=== PATIENT | female | born 1965 | race Caucasian/White ===

== ENCOUNTER 2020-09-21 12:19 | Inpatient (IN) ==
[2020-09-21] MEDS ORDERED: IOPAMIDOL 100 ML BOTTLE IV ONE (12:20)
[2020-09-21] MEDS ORDERED: 0.9 % SODIUM CHLORIDE 1,000 ML IV ONE ×2 (12:39→20:23)
[2020-09-21] MEDS ORDERED: ONDANSETRON 4 MG/2 ML VIAL IV ONE ×3 (12:39→18:02)
--- NOTE | 2020-09-21 12:43 | Emergency Department Note ---
Abdominal Pain HPI General Chief Complaint: Abdominal Pain Stated Complaint: abdominal pain Time Seen by Provider: 09/21/20 12:22 Source: patient Mode of arrival: ambulatory Limitations: no limitations History of Present Illness HPI Narrative: Narrative: 55-year-old female patient referred to the emergency department from the [facility] with chief complaint of worsening abdominal pain, nausea, and vomiting x3 days. Patient is known HIV positive and currently suffers from chronic pain as well. She is not been able to keep any of her medications down for the last 2 days. She contacted her primary care provider who then referred her to the [facility]. While at [facility] she had a urinalysis performed that did show xavier-colored urine with positive proteinuria, positive glucosuria, trace ketones, and moderate blood. She also had a rapid Covid swab performed that was negative. However, due to her health status she was referred to the emergency department for additional work-up. Upon arrival, patient describes the pain as a burning sensation throughout her entire abdomen. This pain extends up along her flanks. She does mention that her urine appeared bloody in the cup. However she denies recurrent hematuria. ROS: Admits to feeling feverish. Denies headaches, tinnitus, or vision changes. Admits to nonproductive cough. Denies runny nose or sinus congestion. Denies shortness of breath. Denies retrosternal chest pain or palpitations. Denies hematemesis or hematochezia. Denies dysuria, urinary frequency, or urinary urgency. Denies vaginal discharge or vaginal bleeding. Admits to generalized weakness. Related Data Home Medications Medication Instructions Recorded Confirmed abacavir 600 mg-dolutegravir 50 1 tab PO QAM 09/21/20 09/21/20 mg-lamivudine 300 mg tablet alprazolam 0.5 mg tablet 0.5 mg PO TID PRN 09/21/20 09/21/20 calcium carbonate 600 mg calcium 600 mg PO QDAY 09/21/20 09/21/20 (1,500 mg) tablet cholecalciferol (vitamin D3) 1,250 1,250 mcg PO QWEEK 09/21/20 09/21/20 mcg (50,000 unit) capsule duloxetine 60 mg capsule,delayed 60 mg PO QDAY 09/21/20 09/21/20 release sprinkle famotidine 20 mg tablet 20 mg PO BID 09/21/20 09/21/20 folic acid 1 mg tablet 1 mg PO QDAY 09/21/20 09/21/20 hydrocodone 10 mg-acetaminophen 1 tab PO Q4H PRN 09/21/20 09/21/20 300 mg tablet lubiprostone 8 mcg capsule 8 mcg PO QDAY 09/21/20 09/21/20 meloxicam 15 mg tablet 15 mg PO QDAY 09/21/20 09/21/20 methadone 5 mg tablet 10 mg PO QDAY 09/21/20 09/21/20 methylphenidate HCl 15 mg 15 mg PO QDAY 09/21/20 09/21/20 capsule,extended release (40-60) sprinkle pregabalin 150 mg capsule 150 mg PO QHS 09/21/20 09/21/20 promethazine 6.25 mg/5 mL oral 12.5 mg PO Q6H PRN 09/21/20 09/21/20 syrup Allergies Allergy/AdvReac Type Severity Reaction Status Date / Time Penicillins Allergy Unknown Verified 09/07/18 10:56 CLASS: 08:24 - S[place]FONAMIDES Allergy Unknown Uncoded 02/15/15 18:18 (SYSTEMIC) NKFA Allergy Unknown Uncoded 02/15/15 18:18 Review of Systems ROS ROS Narrative: Narrative: All systems ED: reviewed and negative except as stated. [facility] Narrative Patient History Narrative: Narrative: Medical/Surgical/Family History All Active Problems (Updated 09/21/20 @ 20:36 by Donnie Cazares PA-C) Elevated LFTs (Acute) Abdominal pain (Acute) History of hysterectomy (Acute) History of cholecystectomy (Acute) Chronic pain (Acute) HIV (human immunodeficiency virus infection) (Acute) Acute URI (Acute) Gastroenteritis (Acute) Medical History (Updated 09/21/20 @ 20:36 by Donnie Cazares PA-C) Chronic pain (Acute) HIV (human immunodeficiency virus infection) (Acute) Social History Smoking Status: Current every day smoker Exam Narrative Narrative: Narrative: General Limitations: no limitations General appearance: Present other (Well-developed, well-nourished, 55-year-old female patient laying left lateral recumbent on the emergency room gurney obviously very uncomfortable. She is cradling her abdomen in her hands. She has low-grade fever at 99, other vital signs normal.) Head Head: Present normocephalic Eye Eye: Present normal appearance, PERRL and EOMI; Absent scleral icterus and conjunctival injection ENT ENT: Present normal oropharynx and mucous membranes moist Neck Neck: Present trachea midline; Absent lymphadenopathy and thyromegaly Chest Chest: Present symmetric chest wall rise Respiratory Respiratory: Present prolonged expiratory phase and decreased breath sounds (Throughout the chest. No adventitious sounds.); Absent normal lung sounds bilaterally, respiratory distress, rales/crackles, wheezes, stridor and accessory muscle use Cardiovascular Cardiovascular: Present regular rate and normal rhythm; Absent systolic murmur and diastolic murmur Adbominal Abdominal: Present soft, tenderness, normal bowel sounds and scar (Post cholecystectomy); Absent distention, guarding, rebound, rigidity, organomegaly, ascites and mass Expanded Abdominal Abdominal Tenderness: Present diffuse and severe Extremities Extremities: Present normal inspection, full ROM and normal capillary refill; Absent pedal edema Back Back: Present normal inspection and full ROM; Absent CVA tenderness (R) and CVA tenderness (L) Neurological Neurological: Present alert and oriented X3 Psychiatric Psychiatric: Present normal affect, anxious and tearful Skin Skin: Present warm (WNL), dry and normal color Course Course Course Narrative: The differential diagnosis of diffuse abdominal pain in the adult patient is broad and includes the following: Bowel obstruction, perforation of the GI tract, acute/chronic mesenteric ischemia, abdominal aortic aneurysm (AAA), inflammatory bowel disease (ulcerative colitis/Crohn disease), viral gastroenteritis, spontaneous bacterial peritonitis, colorectal cancer, celiac disease, ketoacidosis, adrenal insufficiency, foodborne illness, IBS, constipation, diverticulosis, and lactose intolerance. Patient has had symptoms for 2-3 days. She is known HIV positive and has not been able to keep any of her medications down. This would include her prescribed methadone as well as hydrocodone. We are going to reswab her for Covid using the extended test. We are going to get an abdominal/pelvic CT scan with contrast. Prior to this study we will order renal functions. We are going to order some screening laboratory studies. Patient was given normal saline 1000 mL a bolus. I am going to try to treat her pain with IV Dilaudid 0.5 mg IVP. Patient was also given Zofran 4 mg IVP for the nausea. Reevaluation(s) Reevaluation #1: A review of the patient's diagnostics show the following: CBC WBC 11.7, platelets 109, all others in normal limits. Lactic acid 0.9. CMP calcium 8.4, total bilirubin 4.8, AST 647, ALT 64, alkaline phosphatase 188, all others normal limits. Procalcitonin 0.72. UA showing xavier-colored urine with specific gravity 1.017, positive proteinuria, positive bilirubin, few squamous cells, no evidence of infection. Covid swab pending. Abdominal/pelvic CT scan with contrast read by the radiologist as no acute disease. There was mention of COPD, sigmoid diverticulosis, benign adenoma of the left adrenal gland, evidence of GERD, and mild fatty changes to the liver. After reviewing all the data I discussed these findings with my collaborating physician (Dr. Chiu). Time: 18:03 Reevaluation #2: He recommended an ultrasound of the patient's gallbladder. Upon reevaluation I discussed these findings with the patient. She initially told me that she is not had a cholecystectomy. However, her daughter mentions that she has had her gallbladder removed several years ago. Regardless, patient is going be sent for an ultrasound of her liver looking for obstruction. Patient continues complain of nausea was given repeat Zofran 4 mg IVP. Time: 18:05 Reevaluation #3: Ultrasound of the liver showed no obstruction. Common bile duct continued to be nondilated 6 mm. Knowing this I discussed the case once again my collaborating physician. At this time she does not have an identifiable obstruction. Dr. Acuna recommended I reach out to the patient's HIV specialist (Dr. Oliver) in [place]. I was able to speak to the on-call physician (Dr. Garcia) I discussed the case at length with him. At this time he mentioned that although the patient does not have a known obstruction now. She may have passed a stone earlier. He recommended either admitting the patient to our facility for an observation stay and repeating the blood work in the morning looking for improvement. He did recommend blood cultures and starting the patient on prophylactic antibiotics including Rocephin as well as Flagyl. He did mention that the patient was trustworthy that she could be discharged home with instructions to return tomorrow for repeat testing. However that was deci jocelyn that will be made here. Knowing this, I discussed the treatment options with the patient at this time we are going to work on getting her admitted. Knowing this, I reached out to our hospitalist (Dr. Dye) to discuss the case with him. Time: 19:19 Additional Reevaluation(s): 20:34 - At this time Dr. Dye says consented to admit the patient new to our facility. He did recommend starting the patient on both Levaquin 500 mg as well as Zosyn 3.337g IV. Unfortunately, patient is allergic to penicillins. The Levaquin 500 mg was started as recommended. Also recommended increase the patient's IV fluids. She was given a second 1000 mL of normal saline. Once a decision for admission was made I discussed this with the patient. She verbalized understanding. This time patient is going to be admitted is mentioned. All further treatment decisions, modalities, and ultimate patient disposition will be carried out by the hospitalist. Vital Signs Vital signs: Vital Signs Temperature 99 F 09/21/20 12:21 Pulse Rate 86 09/21/20 12:21 Respiratory Rate 16 09/21/20 12:21 Blood Pressure 142/72 09/21/20 12:21 Pulse Oximetry (%) 99 09/21/20 12:21 Temperature 100 F H 09/21/20 21:38 Pulse Rate 77 09/21/20 21:38 Respiratory Rate 16 09/21/20 21:38 Blood Pressure 130/70 09/21/20 21:38 Pulse Oximetry (%) 98 09/21/20 21:38 [facility] MDM Narrative Medical decision making narrative: Narrative: Lab Data Lab results reviewed: Yes I reviewed the patient's lab results. Result diagrams: 09/21/20 13:01 09/21/20 15:08 Labs: Lab Results 09/21/20 09/21/20 09/21/20 Range/Units 13:00 13:01 13:01 WBC 11.7 H (4.5-11.0) K/mcL RBC 4.26 (4.00-5.20) M/mcL Hgb 14.5 (12.0-15.0) g/dL Hct 42.4 (36.0-48.0) % MCV 99.5 (80.0-100.0) fL MCH 34.0 (26.0-34.0) pg MCHC 34.2 (31.0-36.0) g/dL RDW 12.4 (11.5-14.5) % Plt Count 109 L (140-440) K/mcL MPV 13.3 H (7.4-10.4) fL Neut % (Auto) 89.0 H (38.0-78.0) % Lymph % (Auto) 7.0 L (15.0-49.0) % [place] % (Auto) 3.8 (1.0-12.0) % Eos % (Auto) 0.1 (0.0-7.0) % Baso % (Auto) 0.1 (0.0-2.0) % Lymph # (Auto) 0.82 L (1.50-4.80) K/mcL [place] # (Auto) 0.44 (0.10-0.90) K/mcL Eos # (Auto) 0.01 (0.00-0.70) K/mcL Baso # (Auto) 0.01 (0.00-0.20) K/mcL Absolute Neutrophils 10.45 H (1.80-8.00) K/mcL VBG Lactic Acid (0.5-2.0) mmol/L Sodium TNP Potassium TNP Chloride TNP Carbon Dioxide TNP Anion Gap TNP BUN TNP Creatinine TNP POC Creatinine 0.9 (0.6-1.2) mg/dL GFR Calculation TNP Glucose TNP Calcium TNP Total Bilirubin TNP AST TNP ALT TNP Alkaline Phosphatase TNP Total Protein TNP Albumin TNP Globulin TNP Albumin/Globulin Ratio TNP Procalcitonin Urine Color Xavier Urine Appearance Clear (Clear) Urine pH 6.0 (5.0-9.0) Ur Specific Dickey 1.017 (1.000-1.035) Urine Protein 30 A (Negative) mg/dL Urine Glucose (UA) Negative (Negative) mg/dL Urine Ketones Negative (Negative) mg/dL Urine Occult Blood 0.03 (Negative) mg/dL Urine Nitrate Negative (Negative) Urine Bilirubin 4.0 A (Negative) mg/dL Urine Urobilinogen 4.0 A mg/dL Ur Leukocyte Esterase Negative (Negative) /ug Urine RBC 1 (0-3) /hpf Urine WBC 0 (0-4) /hpf Ur Squamous Epith Cells 13 H (0-4) /hpf Urine Bacteria None (0) /hpf Ur Culture Indicated? No 09/21/20 09/21/20 09/21/20 Range/Units 13:01 13:01 15:08 WBC (4.5-11.0) K/mcL RBC (4.00-5.20) M/mcL Hgb (12.0-15.0) g/dL Hct (36.0-48.0) % MCV (80.0-100.0) fL MCH (26.0-34.0) pg MCHC (31.0-36.0) g/dL RDW (11.5-14.5) % Plt Count (140-440) K/mcL MPV (7.4-10.4) fL Neut % (Auto) (38.0-78.0) % Lymph % (Auto) (15.0-49.0) % [place] % (Auto) (1.0-12.0) % Eos % (Auto) (0.0-7.0) % Baso % (Auto) (0.0-2.0) % Lymph # (Auto) (1.50-4.80) K/mcL [place] # (Auto) (0.10-0.90) K/mcL Eos # (Auto) (0.00-0.70) K/mcL Baso # (Auto) (0.00-0.20) K/mcL Absolute Neutrophils (1.80-8.00) K/mcL VBG Lactic Acid 0.9 (0.5-2.0) mmol/L Sodium 135 Potassium 4.0 Chloride 99 Carbon Dioxide 22 Anion Gap 14.0 BUN 14 Creatinine 0.9 POC Creatinine (0.6-1.2) mg/dL GFR Calculation 72 Glucose 98 Calcium 8.4 L Total Bilirubin 4.8 H AST 647 H ALT 664 H Alkaline Phosphatase 188 H Total Protein 6.5 Albumin 4.0 Globulin 2.5 Albumin/Globulin Ratio 1.6 Procalcitonin TNP Urine Color Urine Appearance (Clear) Urine pH (5.0-9.0) Ur Specific D[place]key (1.000-1.035) Urine Protein (Negative) mg/dL Urine Glucose (UA) (Negative) mg/dL Urine Ketones (Negative) mg/dL Urine Occult Blood (Negative) mg/dL Urine Nitrate (Negative) Urine Bilirubin (Negative) mg/dL Urine Urobilinogen mg/dL Ur Leukocyte Esterase (Negative) /ug Urine RBC (0-3) /hpf Urine WBC (0-4) /hpf Ur Squamous Epith Cells (0-4) /hpf Urine Bacteria (0) /hpf Ur Culture Indicated? 09/21/20 Range/Units 15:08 WBC (4.5-11.0) K/mcL RBC (4.00-5.20) M/mcL Hgb (12.0-15.0) g/dL Hct (36.0-48.0) % MCV (80.0-100.0) fL MCH (26.0-34.0) pg MCHC (31.0-36.0) g/dL RDW (11.5-14.5) % Plt Count (140-440) K/mcL MPV (7.4-10.4) fL Neut % (Auto) (38.0-78.0) % Lymph % (Auto) (15.0-49.0) % [place] % (Auto) (1.0-12.0) % Eos % (Auto) (0.0-7.0) % Baso % (Auto) (0.0-2.0) % Lymph # (Auto) (1.50-4.80) K/mcL [place] # (Auto) (0.10-0.90) K/mcL Eos # (Auto) (0.00-0.70) K/mcL Baso # (Auto) (0.00-0.20) K/mcL Absolute Neutrophils (1.80-8.00) K/mcL VBG Lactic Acid (0.5-2.0) mmol/L Sodium Potassium Chloride Carbon Dioxide Anion Gap BUN Creatinine POC Creatinine (0.6-1.2) mg/dL GFR Calculation Glucose Calcium Total Bilirubin AST ALT Alkaline Phosphatase Total Protein Albumin Globulin Albumin/Globulin Ratio Procalcitonin 0.72 H Urine Color Urine Appearance (Clear) Urine pH (5.0-9.0) Ur Specific [place]key (1.000-1.035) Urine Protein (Negative) mg/dL Urine Glucose (UA) (Negative) mg/dL Urine Ketones (Negative) mg/dL Urine Occult Blood (Negative) mg/dL Urine Nitrate (Negative) Urine Bilirubin (Negative) mg/dL Urine Urobilinogen mg/dL Ur Leukocyte Esterase (Negative) /ug Urine RBC (0-3) /hpf Urine WBC (0-4) /hpf Ur Squamous Epith Cells (0-4) /hpf Urine Bacteria (0) /hpf Ur Culture Indicated? Radiology Data Radiology results reviewed: Yes I reviewed the patient's radiology results. Radiology results narrative: Ordering Physician: Donnie Cazares PA-C Date of Service: 09/21/20 Procedure(s): CT abdomen pelvis w con Accession Number(s): [id number] CLINICAL INFORMATION: Diffuse abdominal pain. HIV positive COMPARISON: Abdomen and pelvic CT 12/22/2016 TECHNIQUE: Following enteric contrast, 80 cc of Isovue-370 were injected intravenously, and 60 seconds later, 0.625 mm helical slices were obtained from the mid heart through the subtrochanteric regions. Following reconstruction, 2.5 mm sagittal, coronal and axial reformatted images were processed and reviewed at bone, lung and soft tissue windows. Five minutes later, 0.625 mm helical slices were obtained from the mid heart through the kidneys and viewed at soft tissue windows.The exam was performed using radiation dose optimization techniques including, but not limited to, automated exposure control, adjustment of the mA and/or kV according to patient size and use of iterative reconstruction technique. FINDINGS: Lung bases show scattered bullae and scarring suggesting COPD. No effusions. The visualized heart is grossly normal. There is mild wall thickening of the distal esophagus likely related peptic disease. It has progressed from the previous exam Abdominal images show minimal fatty change within the liver, but no focal hepatic lesions. The gallbladder is surgically absent. Intrahepatic and common bile ducts are normal caliber: CBD is 6 mm. The pancreas, both kidneys, right adrenal gland, spleen and aorta, including aortic branches, are normal in size configuration and attenuation without focal lesion. 11 mm low-attenuation benign adenoma left adrenal gland is stable. There is no free air, free fluid or adenopathy. Pelvic images show hysterectomy and oophorectomy changes. The urinary bladder is normal. A 7 mm ossification in the supravesical fat is unchanged likely stigmata of remote epiploic appendicitis. It is insignificant. The stomach, small bowel, appendix and large bowel are unremarkable with the exception of scattered sigmoid diverticuli. Bone windows show no osseous abnormality IMPRESSION: 1. No acute disease. 2. Sigmoid diverticulosis, but no evidence of diverticulitis. 3. Mild fatty change within the liver - stable 4. 11 mm benign adenoma left adrenal gland - stable 5. COPD 6. Mild wall thickening distal esophagus likely related peptic disease - progressing Interpreted and Authenticated by: Deshawn Alexis 09/21/20 Discharge Plan Patient/Caregiver Discharge Instructions Pt seen by [facility]/PA only: Yes Clinical Impression: Elevated LFTs Abdominal pain Qualifiers: Abdominal location: generalized Qualified Code(s): R10.84 - Generalized abdominal pain HIV (human immunodeficiency virus infection) Qualifiers: HIV symptom status: unspecified Qualified Code(s): B20 - Human immunodeficiency virus [HIV] disease Patient Disposition: Xfer As Outpt/Obs ([facility]) Condition: Fair Follow up with: Bin Oliver MD [Primary Care Provider] - Prescriptions: No Action methylphenidate HCl 15 mg cap,ER sprinkle,biphasic 40-60 15 mg PO QDAY RF: 0 pregabalin 150 mg capsule 150 mg PO QHS RF: 0 methadone 5 mg tablet 10 mg PO QDAY RF: 0 alprazolam 0.5 mg tablet 0.5 mg PO TID PRN (Reason: Anxiety) RF: 0 meloxicam 15 mg tablet 15 mg PO QDAY RF: 0 Amitiza 8 mcg capsule 8 mcg PO QDAY RF: 0 cholecalciferol (vitamin D3) 1,250 mcg (50,000 unit) capsule 1,250 mcg PO QWEEK RF: 0 Triumeq 600-50-300 mg tablet 1 tab PO QAM RF: 0 duloxetine 60 mg capsule, delayed rel sprinkle 60 mg PO QDAY RF: 0 folic acid 1 mg tablet 1 mg PO QDAY RF: 0 famotidine 20 mg tablet 20 mg PO BID RF: 0 calcium carbonate [Calcium 600] 600 mg calcium (1,500 mg) tablet 600 mg PO QDAY RF: 0 promethazine 6.25 mg/5 mL syrup 12.5 mg PO Q6H PRN (Reason: Nausea) RF: 0 hydrocodone-acetaminophen 10-300 mg tablet 1 tab PO Q4H PRN (Reason: Pain) RF: 0
[2020-09-21] MEDS: HYDROmorphone 0.5 MG/0.5 ML SYRINGE IV PRN ×3 (13:10→20:00)
[2020-09-21 13:11] LABS: POC Creatinine 0.9 mg/dL (0.6-1.2)
[2020-09-21 14:06] LABS: Basophils # (Auto) 0.01 K/mcL (0.00-0.20); Basophils % (Auto) 0.1 % (0.0-2.0); Eosinophils # (Auto) 0.01 K/mcL (0.00-0.70); Eosinophils % (Auto) 0.1 % (0.0-7.0); Hematocrit 42.4 % (36.0-48.0); Hemoglobin 14.5 g/dL (12.0-15.0); Lymphocytes # (Auto) 0.82 K/mcL (1.50-4.80); Mean Cell Volume 99.5 fL (80.0-100.0); Mean Corpuscular HGB Conc 34.2 g/dL (31.0-36.0); Mean Platelet Volume 13.3 fL (7.4-10.4); Monocytes # (Auto) 0.44 K/mcL (0.10-0.90); Monocytes % (Auto) 3.8 % (1.0-12.0); Platelet Count 109 K/mcL (140-440); RBC 4.26 M/mcL (4.00-5.20); Red Cell Distribution Width 12.4 % (11.5-14.5); WBC 11.7 K/mcL (4.5-11.0)
[2020-09-21 14:42] LABS: Appearance,Urine CLEAR (Clear); Color,Urine AMBER; Culture Indicated,Urine No; Glucose,Urine (UA) Negative (Negative); Ketones,Urine Negative (Negative); Leukocyte Esterase,Urine Negative /ug (Negative); Nitrate,Urine Negative (Negative); Protein,Urine 30 mg/dL (Negative); Specific Gravity,Urine 1.017 (1.000-1.035); Urine Blood 0.03 mg/dL (Negative); Urine RBC 1 /hpf (0-3); Urine Squamous Epithelial Cell 13 /hpf (0-4); Urine WBC 0 /hpf (0-4)
--- NOTE | 2020-09-21 14:45 | Cat Scan Report ---
CLINICAL INFORMATION: Diffuse abdominal pain. HIV positive COMPARISON: Abdomen and pelvic CT 12/22/2016 TECHNIQUE: Following enteric contrast, 80 cc of Isovue-370 were injected intravenously, and 60 seconds later, 0.625 mm helical slices were obtained from the mid heart through the subtrochanteric regions. Following reconstruction, 2.5 mm sagittal, coronal and axial reformatted images were processed and reviewed at bone, lung and soft tissue windows. Five minutes later, 0.625 mm helical slices were obtained from the mid heart through the kidneys and viewed at soft tissue windows.The exam was performed using radiation dose optimization techniques including, but not limited to, automated exposure control, adjustment of the mA and/or kV according to patient size and use of iterative reconstruction technique. FINDINGS: Lung bases show scattered bullae and scarring suggesting COPD. No effusions. The visualized heart is grossly normal. There is mild wall thickening of the distal esophagus likely related peptic disease. It has progressed from the previous exam Abdominal images show minimal fatty change within the liver, but no focal hepatic lesions. The gallbladder is surgically absent. Intrahepatic and common bile ducts are normal caliber: CBD is 6 mm. The pancreas, both kidneys, right adrenal gland, spleen and aorta, including aortic branches, are normal in size configuration and attenuation without focal lesion. 11 mm low-attenuation benign adenoma left adrenal gland is stable. There is no free air, free fluid or adenopathy. Pelvic images show hysterectomy and oophorectomy changes. The urinary bladder is normal. A 7 mm ossification in the supravesical fat is unchanged likely stigmata of remote epiploic appendicitis. It is insignificant. The stomach, small bowel, appendix and large bowel are unremarkable with the exception of scattered sigmoid diverticuli. Bone windows show no osseous abnormality IMPRESSION: 1. No acute disease. 2. Sigmoid diverticulosis, but no evidence of diverticulitis. 3. Mild fatty change within the liver - stable 4. 11 mm benign adenoma left adrenal gland - stable 5. COPD 6. Mild wall thickening distal esophagus likely related peptic disease - progressing Interpreted and Authenticated by: Deshawn Alexis 09/21/20
[2020-09-21 16:10] LABS: ALT/SGPT 664 U/L (<40); AST/SGOT 647 U/L (<32); Albumin/Globulin Ratio 1.6 (1.0-2.3); Alkaline Phosphatase 188 U/L (39-117); Bilirubin,Total 4.8 mg/dL (0.1-1.0); Blood Urea Nitrogen 14 mg/dL (6-20); Calcium 8.4 mg/dL (8.6-10.4); Carbon Dioxide 22 mmol/L (22-30); Chloride 99 mmol/L (96-108); Globulin 2.5 gm/dL (2.2-3.7); Glomerular Filtration Rate 72; Glucose 98 mg/dL (70-105)
[2020-09-21] MEDS ORDERED: cefTRIAXone 2 GM in DEXTROSE 5% IN WATER 50 ML IV ONE (19:18)
[2020-09-21] MEDS ORDERED: LEVOFLOXACIN 500 MG/100 ML BAG IV ONE (20:23)
[2020-09-21] MEDS ORDERED: PROMETHAZINE 25 MG/ML VIAL IV ONE (21:29)
--- NOTE | 2020-09-21 21:57 | Internal Med History&Physical ---
HPI History of Present Illness Patient information: Note initiated : 09/21/20 at 9:51 pm Service Date, if different from initiated Date: [] Patient: Jolie Horner a 55 y/o F admitted on for abdominal pain. Chief Complaint: History of present illness: Ms. Horner is a 55 year old F with a history of HIV for [address] Saroj Adair at [place] who was in her baseline state of health until she started experiencing worsening abdominal pain along with nausea vomiting started approximately 72 hours ago. The symptoms have progressed to the point patient is unable to take anything by mouth and with frequent exacer bation of symptoms with attempts at oral intake. She noticed her urine getting darker along with yellowish discoloration of skin. With increasing concerns she presents to the ER. She denies associated fever, flank pain, diarrhea, dysuria, headache myalgia, joint swelling or rash. She denies exposure to sick contacts. She denies taking [id number] herbal supplements. Initial work-up in the ER was consistent with elevated LFTs/bilirubin. Abnormal CT was essentially unremarkable for acute process. Hospital service was consulted in light of elevated LFTs/jaundice and further evaluation. White count 11,000. Patient was started on antibiotics after cultures were drawn. At the time of my evaluation patient is alert and oriented. She was able to answer most the questions. She continues to feel nauseous. Endorses to abdominal pain 6 out of 10. Denies hematemesis or bloody stool. Review of systems 10 point review of system was performed and is negative except for ones cussed above PFSH PFSH All Active Problems (Updated 09/21/20 @ 20:36 by Donnie Cazares PA-C) Elevated LFTs (Acute) Abdominal pain (Acute) History of hysterectomy (Acute) History of cholecystectomy (Acute) Chronic pain (Acute) HIV (human immunodeficiency virus infection) (Acute) Acute URI (Acute) Gastroenteritis (Acute) Medical History (Updated 09/21/20 @ 20:36 by Donnie Cazares PA-C) Chronic pain (Acute) HIV (human immunodeficiency virus infection) (Acute) Social History smoking status: Current every day smoker MEDS/ALLERGIES Home Medications and Allergies Home Medications Medication Instructions Recorded Confirmed Type abacavir 600 mg-dolutegravir 50 1 tab PO QAM 09/21/20 09/22/20 History mg-lamivudine 300 mg tablet alprazolam 0.5 mg tablet 0.5 mg PO TID PRN 09/21/20 09/22/20 History calcium carbonate 600 mg calcium 600 mg PO QDAY 09/21/20 09/22/20 History (1,500 mg) tablet cholecalciferol (vitamin D3) 1,250 1,250 mcg PO QWEEK 09/21/20 09/22/20 History mcg (50,000 unit) capsule duloxetine 60 mg capsule,delayed 60 mg PO QDAY 09/21/20 09/22/20 History release sprinkle famotidine 20 mg tablet 20 mg PO BID 09/21/20 09/22/20 History folic acid 1 mg tablet 1 mg PO QDAY 09/21/20 09/22/20 History lubiprostone 8 mcg capsule 8 mcg PO QDAY 09/21/20 09/22/20 History meloxicam 15 mg tablet 15 mg PO QDAY 09/21/20 09/22/20 History methadone 5 mg tablet 10 mg PO QHS 09/21/20 09/22/20 History methylphenidate HCl 15 mg 15 mg PO QDAY 09/21/20 09/22/20 History capsule,extended release (40-60) sprinkle pregabalin 150 mg capsule 150 mg PO QHS 09/21/20 09/22/20 History promethazine 6.25 mg/5 mL oral 12.5 mg PO Q6H PRN 09/21/20 09/22/20 History syrup hydrocodone-acetaminophen 1 tab PO Q4H PRN 09/22/20 09/22/20 History Allergies Allergy/AdvReac Type Severity Reaction Status Date / Time Penicillins Allergy Severe Unresponsiv Verified 09/22/20 04:29 e CLASS: 08:24 - SULFONAMIDES Allergy Unknown Uncoded 02/15/15 18:18 (SYSTEMIC) NKFA Allergy Unknown Uncoded 02/15/15 18:18 EXAM Constitutional Vitals: Temp Pulse Resp BP Pulse Ox 100 F H 77 16 130/70 98 09/21/20 21:38 09/21/20 21:38 09/21/20 21:38 09/21/20 21:38 09/21/20 21:38 Alert oriented but anxious Head normocephalic Oral cavity moist No ear nose discharge Eye movement symmetrical, scleral icterus noted Neck supple no lymphadenopathy S1-S2 regular tachycardia Nonlabored breathing Tender upper abdomen but no guarding Lower extremity no cyanosis clubbing or joint swelling Skin minimally jaundiced Psych no hallucination Neuro GCS 15 DATA Data Completed and Pending Labs: Labs from last 24 hours 09/21/20 09/21/20 09/21/20 15:08 15:08 13:24 WBC RBC Hgb Hct MCV MCH MCHC RDW Plt Count MPV Neut % (Auto) Lymph % (Auto) [place] % (Auto) Eos % (Auto) Baso % (Auto) Lymph # (Auto) [place] # (Auto) Eos # (Auto) Baso # (Auto) Absolute Neutrophils VBG Lactic Acid Sodium 135 Potassium 4.0 Chloride 99 Carbon Dioxide 22 Anion Gap 14.0 BUN 14 Creatinine 0.9 POC Creatinine GFR Calculation 72 Glucose 98 Calcium 8.4 L Total Bilirubin 4.8 H AST 647 H ALT 664 H Alkaline Phosphatase 188 H Total Protein 6.5 Albumin 4.0 Globulin 2.5 Albumin/Globulin Ratio 1.6 Procalcitonin 0.72 H Urine Color Urine Appearance Urine pH Ur Specific [place] Urine Protein Urine Glucose (UA) Urine Ketones Urine Occult Blood Urine Nitrate Urine Bilirubin Urine Urobilinogen Ur Leukocyte Esterase Urine RBC Urine WBC Ur Squamous Epith Cells Urine Bacteria Ur Culture Indicated? SARS-CoV-2 (PCR) Pending 09/21/20 09/21/20 09/21/20 13:01 13:01 13:01 WBC RBC Hgb Hct MCV MCH MCHC RDW Plt Count MPV Neut % (Auto) Lymph % (Auto) [place] % (Auto) Eos % (Auto) Baso % (Auto) Lymph # (Auto) [place] # (Auto) Eos # (Auto) Baso # (Auto) Absolute Neutrophils VBG Lactic Acid 0.9 Sodium TNP Potassium TNP Chloride TNP Carbon Dioxide TNP Anion Gap TNP BUN TNP Creatinine TNP POC Creatinine 0.9 GFR Calculation TNP Glucose TNP Calcium TNP Total Bilirubin TNP AST TNP ALT TNP Alkaline Phosphatase TNP Total Protein TNP Albumin TNP Globulin TNP Albumin/Globulin Ratio TNP Procalcitonin TNP Urine Color Urine Appearance Urine pH Ur Specific [place] Urine Protein Urine Glucose (UA) Urine Ketones Urine Occult Blood Urine Nitrate Urine Bilirubin Urine Urobilinogen Ur Leukocyte Esterase Urine RBC Urine WBC Ur Squamous Epith Cells Urine Bacteria Ur Culture Indicated? SARS-CoV-2 (PCR) 09/21/20 09/21/20 13:01 13:00 WBC 11.7 H RBC 4.26 Hgb 14.5 Hct 42.4 MCV 99.5 MCH 34.0 MCHC 34.2 RDW 12.4 Plt Count 109 L MPV 13.3 H Neut % (Auto) 89.0 H Lymph % (Auto) 7.0 L [place] % (Auto) 3.8 Eos % (Auto) 0.1 Baso % (Auto) 0.1 Lymph # (Auto) 0.82 L [place] # (Auto) 0.44 Eos # (Auto) 0.01 Baso # (Auto) 0.01 Absolute Neutrophils 10.45 H VBG Lactic Acid Sodium Potassium Chloride Carbon Dioxide Anion Gap BUN Creatinine POC Creatinine GFR Calculation Glucose Calcium Total Bilirubin AST ALT Alkaline Phosphatase Total Protein Albumin Globulin Albumin/Globulin Ratio Procalcitonin Urine Color [place] Urine Appearance Clear Urine pH 6.0 Ur Specific [place] 1.017 Urine Protein 30 A Urine Glucose (UA) Negative Urine Ketones Negative Urine Occult Blood 0.03 Urine Nitrate Negative Urine Bilirubin 4.0 A Urine Urobilinogen 4.0 A Ur Leukocyte Esterase Negative Urine RBC 1 Urine WBC 0 Ur Squamous Epith Cells 13 H Urine Bacteria None Ur Culture Indicated? No SARS-CoV-2 (PCR) A/P Narrative A/P Narrative: * Early cholangitis with elevated LFTs likely, possibly gallstone mediated however no significant ductal dilatation noted. Likely spontaneous gallstone expulsion. Continue empiric antibiotic coverage following cultures. Monitor LFTs. * Early sepsis management per guidelines. White count 11.7. Pancultures/antibiotic coverage * Anxiety disorder continue Cymbalta/alprazolam * Pain management on morphine/home dose methadone * History of HIV, managed by Dr. Mana Jain * Neuropathy continue Lyrica * prophylaxis Heparin Plan * Inpatient admission * Sepsis management guidelines * Antibiotic coverage * Pre-existing medical condition management home meds * Antiemetics/crystalloids/analgesics/supportive management * PT OT nutrition support Time Spent With Patient Time: Total time spent is greater than 50% in coordination of care (as documented) at patient's floor/unit and/or counseling patient:
[2020-09-22] MEDS ORDERED: guaiFENesin/CODEINE 10 ML UDC PO PRN (00:12)
[2020-09-22] MEDS ORDERED: HYDROmorphone 0.5 MG/0.5 ML SYRINGE IV PRN (00:12)
[2020-09-22] MEDS ORDERED: morphine 2 MG/ML VIAL IV PRN (00:12)
[2020-09-22] MEDS ORDERED: BISACODYL 10 MG SUPP.RECT PR PRN (00:12)
[2020-09-22] MEDS ORDERED: PREGABALIN 150 MG CAPSULE PO SCH ×2 (00:12→21:00)
[2020-09-22] MEDS ORDERED: ONDANSETRON 4 MG ODT TABLET SL PRN (00:12)
[2020-09-22] MEDS ORDERED: SENNOSIDES/DOCUSATE SODIUM 1 TAB TABLET PO SCH (00:12)
[2020-09-22] MEDS ORDERED: PROMETHAZINE 12.5 MG PO PRN (00:12)
[2020-09-22] MEDS ORDERED: HYDROCODONE ACETAMINOPHEN PO PRN (00:12)
[2020-09-22] MEDS ORDERED: ALPRAZolam 0.5 MG TABLET PO PRN (00:12)
[2020-09-22] MEDS ORDERED: LEVOFLOXACIN 750 MG/150 ML BAG IV SCH ×2 (00:12→09:00)
[2020-09-22] MEDS ORDERED: ACETAMINOPHEN 650 MG/65 ML BAG IV PRN (00:12)
[2020-09-22] MEDS ORDERED: POLYETHYLENE GLYCOL 3350 17 GM PACKET PO PRN (00:12)
[2020-09-22] MEDS ORDERED: 0.9 % SODIUM CHLORIDE 1,000 ML IV SCH ×2 (00:12)
[2020-09-22] MEDS ORDERED: MAGNESIUM SULFATE 2 GM/50 ML BAG IV PRN (00:12)
[2020-09-22] MEDS ORDERED: PROMETHAZINE 25 MG/ML VIAL IV PRN (00:12)
[2020-09-22] MEDS ORDERED: MELATONIN 3 MG TABLET PO PRN (00:12)
[2020-09-22] MEDS ORDERED: POTASSIUM CHLORIDE 40 MEQ in DEXTROSE 5% IN WATER 500 ML IV PRN (00:12)
[2020-09-22] MEDS: 0.9 % SODIUM CHLORIDE 10 ML SYRINGE IV SCH ×3 (00:14→13:13)
[2020-09-22] MEDS: DOCUSATE SODIUM 100 MG CAPSULE PO SCH ×2 (00:16→08:13)
[2020-09-22] MEDS ORDERED: HYDROmorphone 0.5 MG/0.5 ML SYRINGE ONE (00:45)
[2020-09-22] MEDS ORDERED: ONDANSETRON 4 MG/2 ML VIAL ONE ×2 (00:45→07:00)
[2020-09-22] MEDS ORDERED: ALPRAZolam 0.5 MG TABLET ONE (00:48)
[2020-09-22] MEDS ORDERED: PREGABALIN 150 MG CAPSULE PO ONE (00:48)
[2020-09-22] MEDS ORDERED: FAMOTIDINE 20 MG TABLET PO ONE (00:49)
[2020-09-22] MEDS: ONDANSETRON 4 MG/2 ML VIAL IV PRN ×2 (00:51→06:55)
[2020-09-22] MEDS: PIPERACILLIN SODIUM/TAZOBACTAM 3.375 GM in DEXTROSE 5% IN WATER 50 ML IV SCH ×3 (00:53→13:12)
[2020-09-22] MEDS: HEPARIN 5,000 UNIT/ML VIAL SQ SCH ×2 (01:11→08:43)
[2020-09-22] MEDS: FAMOTIDINE 20 MG TABLET PO SCH ×2 (01:57→08:43)
--- NOTE | 2020-09-22 04:24 | Ultrasound Report ---
CLINICAL INFORMATION: elevated LFTs, Total bili 4.8, obstruction COMPARISON: Abdomen and pelvic CT 09/21/2020 FINDINGS: The gallbladder is surgically absent. Common bile duct is normal diameter: 6 mm. No stone identified within the common bile duct. IMPRESSION: Common bile duct is normal diameter. No evidence of choledocholithiasis on ultrasound, however the CT was more critically reviewed. There does appear to be a vague 8 mm soft tissue density within the intrapancreatic common bile duct. This may represent sludge or a noncalcified stone. Suggest MRCP Interpreted and Authenticated by: Deshawn Alexis 09/22/20
[2020-09-22 06:25] LABS: Basophils # (Auto) 0.02 K/mcL (0.00-0.20); Basophils % (Auto) 0.3 % (0.0-2.0); Eosinophils # (Auto) 0.07 K/mcL (0.00-0.70); Eosinophils % (Auto) 1.1 % (0.0-7.0); Hematocrit 38.4 % (36.0-48.0); Hemoglobin 12.7 g/dL (12.0-15.0); Lymphocytes # (Auto) 1.05 K/mcL (1.50-4.80); Lymphocytes % (Auto) 15.8 % (15.0-49.0); Mean Cell Volume 102.4 fL (80.0-100.0); Mean Corpuscular HGB Conc 33.1 g/dL (31.0-36.0); Mean Platelet Volume 12.3 fL (7.4-10.4); Monocytes # (Auto) 0.41 K/mcL (0.10-0.90); Monocytes % (Auto) 6.2 % (1.0-12.0); Neutrophils % (Auto) 76.6 % (38.0-78.0); Platelet Count 73 K/mcL (140-440); RBC 3.75 M/mcL (4.00-5.20); Red Cell Distribution Width 12.6 % (11.5-14.5); WBC 6.7 K/mcL (4.5-11.0)
[2020-09-22 06:54] LABS: ALT/SGPT 415 U/L (<40); AST/SGOT 266 U/L (<32); Albumin 3.3 gm/dL (3.2-5.2); Albumin/Globulin Ratio 1.3 (1.0-2.3); Alkaline Phosphatase 153 U/L (39-117); Bilirubin,Direct 3.3 mg/dL (<0.3); Bilirubin,Total 3.8 mg/dL (0.1-1.0); Blood Urea Nitrogen 8 mg/dL (6-20); Calcium 7.8 mg/dL (8.6-10.4); Carbon Dioxide 19 mmol/L (22-30); Chloride 104 mmol/L (96-108); Globulin 2.6 gm/dL (2.2-3.7); Glomerular Filtration Rate 83; Glucose 76 mg/dL (70-105); Lactate Dehydrogenase 355 U/L (135-225); Phosphorous 1.9 mg/dL (2.5-4.5); Triglycerides 180 mg/dL (<150); Uric Acid 2.2 mg/dL (2.5-8.0)
[2020-09-22] MEDS ORDERED: Lubiprostone [Amitiza] 8 MCG Capsule PO SCH (08:00)
[2020-09-22] MEDS ORDERED: HYDROcodone/APAP 5/325MG TABLET PO PRN (08:09)
[2020-09-22] MEDS ORDERED: CALCIUM CARBONATE 500 MG TAB.CHEW CHEWED SCH (09:00)
[2020-09-22] MEDS ORDERED: METHADONE 5 MG TABLET PO SCH (09:00)
[2020-09-22] MEDS ORDERED: MULTIVIT,THER IRON,CA,FA & MIN 1 TABLET PO SCH (09:00)
[2020-09-22] MEDS ORDERED: LAMIVUDINE 300 MG PO SCH (09:00)
[2020-09-22] MEDS ORDERED: METHYLPHENIDATE HCL PO SCH (09:00)
[2020-09-22] MEDS ORDERED: MELOXICAM 7.5 MG TABLET PO SCH (09:00)
[2020-09-22] MEDS ORDERED: ABACAVIR PO SCH (09:00)
[2020-09-22] MEDS ORDERED: DULoxetine 30 MG CAPSULE PO SCH (09:00)
[2020-09-22] MEDS ORDERED: FOLIC ACID 1 MG TABLET PO SCH (09:00)
[2020-09-22] MEDS ORDERED: DOLUTEGRAVIR 50 MG PO SCH (09:00)
--- NOTE | 2020-09-22 10:15 | Internal Med Progress Note ---
SUBJECTIVE Subjective Patient information: Note initiated : 09/22/20 at 10:13 am Service Date, if different from initiated Date: [] Patient: Jolie Horner 55 y/o F admitted on 09/22/20 for abdominal pain. Chief Complaint: [] Constitutional Vitals: Vital Signs Temp Pulse Resp BP Pulse Ox 99.5 F H 68 33 H 162/81 92 09/22/20 08:01 09/22/20 08:01 09/22/20 08:01 09/22/20 08:01 09/22/20 08:01 Period Temp Pulse Resp BP Sys/Dwyer Pulse Ox Last 24 Hr 98.8 F-100.3 F 63-86 14-33 125-179/66-95 91-100 Intake and Output 09/21/20 09/22/20 09/22/20 21:59 05:59 13:59 Intake Total 3187 50 Output Total 900 350 Balance 2287 -300 Weight 70.931 kg Resting comfortably Nonlabored breathing Minimal anxious Intake & Output: Intake & Output 09/21/20 09/22/20 09/22/20 21:59 05:59 13:59 Intake Total 3187 50 Output Total 900 350 Balance 2287 -300 Weight 70.931 kg Intake: IV 3187 50 Sodium Chloride 0.9% 1,000 ml @ 3000 Wide Open IV BOLUS ONE Rx#: [id number] Zosyn 3.375 gm In Dextrose 5% 37 50 in Water 50 ml @ 100 mls/hr IV Q6H [facility] Rx#:[id number] Rocephin 2 gm In Dextrose 5% in 50 Water 50 ml @ 100 mls/hr IV ONCE ONE Rx#:[id number] Output: Void Amount 900 350 Other: Urine Appearance Clear Clear Urine Color Dark Moon Dark Yellow Urine Odor Normal Normal # Voids 1 OBJ DATA Labs CBC & Chem 7: 09/22/20 05:10 09/22/20 05:10 Labs: Abnormal Lab Results 09/22/20 09/22/20 09/21/20 05:10 05:10 15:08 WBC RBC 3.75 L MCV 102.4 H Plt Count 73 L MPV 12.3 H Neut % (Auto) Lymph % (Auto) Lymph # (Auto) 1.05 L Absolute Neutrophils Carbon Dioxide 19 L Uric Acid 2.2 L Calcium 7.8 L Phosphorus 1.9 L Total Bilirubin 3.8 H Direct Bilirubin 3.3 H GGT 231 H AST 266 H ALT 415 H Alkaline Phosphatase 153 H Lactate Dehydrogenase 355 H Triglycerides 180 H Procalcitonin 0.72 H Urine Protein Urine Bilirubin Urine Urobilinogen Ur Squamous Epith Cells 09/21/20 09/21/20 09/21/20 15:08 13:01 13:00 WBC 11.7 H RBC MCV Plt Count 109 L MPV 13.3 H Neut % (Auto) 89.0 H Lymph % (Auto) 7.0 L Lymph # (Auto) 0.82 L Absolute Neutrophils 10.45 H Carbon Dioxide Uric Acid Calcium 8.4 L Phosphorus Total Bilirubin 4.8 H Direct Bilirubin GGT AST 647 H ALT 664 H Alkaline Phosphatase 188 H Lactate Dehydrogenase Triglycerides Procalcitonin Urine Protein 30 A Urine Bilirubin 4.0 A Urine Urobilinogen 4.0 A Ur Squamous Epith Cells 13 H Meds: Medications Hydrocodone Bitart/Acetaminophen (Shafer 5/325mg) 1 tab PO Q4HP PRN; Protocol PRN Reason: Per Pain Protocol Alprazolam (Xanax) 0.5 mg PO TIDP PRN PRN Reason: Anxiety Last Admin: 09/22/20 08:43 Dose: 0.5 mg Documented by: Bisacodyl (Dulcolax) 10 mg NE Q2-3DAYS PRN PRN Reason: Constipation Calcium Carbonate/Glycine (Tums) 500 mg CHEWED DAILY [facility] Last Admin: 09/22/20 08:42 Dose: 500 mg Documented by: Docusate Sodium (Colace) 100 mg PO BID [facility] Last Admin: 09/22/20 08:13 Dose: Not Given Documented by: Duloxetine HCl (Cymbalta) 60 mg PO DAILY [facility] Last Admin: 09/22/20 08:42 Dose: 60 mg Documented by: Famotidine (Pepcid) 20 mg PO BID [facility] Last Admin: 09/22/20 08:43 Dose: 20 mg Documented by: Folic Acid (Folic Acid) 1 mg PO QDAY [facility] Last Admin: 09/22/20 08:43 Dose: 1 mg Documented by: Guaifenesin/Codeine Phosphate (Robitussin Ac) 10 ml PO Q4HP PRN PRN Reason: Cough Heparin Sodium (Porcine) (Heparin) 5,000 unit SQ Q12 [facility] Last Admin: 09/22/20 08:43 Dose: Not Given Documented by: Potassium Chloride 40 meq/ (Dextrose) 520 mls @ 130 mls/hr IV UD PRN PRN Reason: K+ = or < 3.5 Acetaminophen (Ofirmev) 650 mg in 65 mls @ 130 mls/hr IV Q6HP PRN; Protocol PRN Reason: Per Pain Protocol/Fever > 101 Magnesium Sulfate (Magnesium Sulfate) 2 gm in 50 mls @ 50 mls/hr IV UD PRN PRN Reason: MG = or < 1.7 Sodium Chloride (Sodium Chloride 0.9%) 1,000 mls @ 50 mls/hr IV .Q20H [facility] Stop: 09/24/20 12:11 Last Admin: 09/22/20 00:55 Dose: 50 mls/hr Documented by: Sodium Chloride (Sodium Chloride 0.9%) 1,000 mls @ 0 mls/hr IV BOLUS [facility] Last Infusion: 09/22/20 01:58 Dose: Infused Documented by: Piperacillin Sod/Tazobactam (Sod 3.375 gm/ Dextrose) 50 mls @ 100 mls/hr IV Q6H [facility]; Protocol Last Infusion: 09/22/20 09:53 Dose: Infused Documented by: Levofloxacin (Levaquin) 750 mg in 150 mls @ 100 mls/hr IV DAILY [facility]; Protocol Last Admin: 09/22/20 09:53 Dose: 100 mls/hr Documented by: Iron Carb/Multivit/[place]/Folic Acid (Multivitamin W/Minerals) 1 tab PO DAILY [facility] Last Admin: 09/22/20 08:43 Dose: 1 tab Documented by: Melatonin (Melatonin 3mg Tablet) 3 mg PO HSP PRN PRN Reason: Insomnia Meloxicam (Mobic) 15 mg PO DAILY [facility] Last Admin: 09/22/20 08:42 Dose: 15 mg Documented by: Morphine Sulfate (Morphine) 2 mg IV Q4HP PRN; Protocol PRN Reason: Per Pain Protocol Non-Formulary Medication (Cholecalciferol (Vitamin D3)) 1,250 mcg PO QWEEK [facility] Non-Formulary Medication (Methylphenidate Hcl) 15 mg PO QDAY [facility] Last Admin: 09/22/20 08:44 Dose: Not Given Documented by: Ondansetron HCl (Zofran Odt) 4 mg SL Q4-6HP PRN; Protocol PRN Reason: Nausea And Vomiting Ondansetron HCl (Zofran) 4 mg IV Q4-6HP PRN; Protocol PRN Reason: Nausea And Vomiting Last Admin: 09/22/20 06:55 Dose: 4 mg Documented by: Abacavir 600 Mg- Dolutegravir 50 Mg- Lamivud 300 Mg [ Triumeq] Tablet 1 dose PO DAILY [facility] Last Admin: 09/22/20 08:29 Dose: Not Given Documented by: Lubiprostone [ Amitiza] 8 Mcg Capsule 1 dose PO QAC [facility] Last Admin: 09/22/20 08:29 Dose: Not Given Documented by: Polyethylene Glycol (Miralax) 17 gm PO DAILYP PRN PRN Reason: Constipation Pregabalin (Lyrica) 150 mg PO [facility] Senna/Docusate Sodium (Senna Plus Tablet) 1 tab PO [facility] Last Admin: 09/22/20 00:16 Dose: Not Given Documented by: Sodium Chloride (Saline Flush) 10 ml IV Q8 [facility] Last Admin: 09/22/20 04:31 Dose: Not Given Documented by: A/P Narrative A/P Narrative: * Early cholangitis with elevated LFTs likely, possibly gallstone mediated however no significant ductal dilatation noted. Likely spontaneous gallstone expulsion. Rapid improvement in LFTs noted. * Early sepsis management per guidelines. White count downtrending. Clinically resolved. * Anxiety disorder continue Cymbalta/alprazolam * Pain management on morphine/home dose methadone * History of HIV, managed by Dr. Mana Jain * Neuropathy continue Lyrica * prophylaxis Heparin Plan * Continue symptomatic management * De-escalate antibiotics in 24 hours * Pre-existing medical condition management home meds * Continue supportive treatment including antiemetics/crystalloids/analgesics * PT OT nutrition support * Discharge planning Time Spent With Patient Time: Total time spent is greater than 50% in coordination of care (as documented) at patient's floor/unit and/or counseling patient: QUALITY VTE Deep Vein Thrombosis/Pulmonary Embolism Present on Admission: No
--- NOTE | 2020-09-22 12:44 | Discharge Summary ---
Discharge Provider Provider Patient information: Note initiated : 09/22/20 at 12:41 pm Service Date, if different from initiated Date: [] Patient: Jolie Horner a 55 y/o F admitted on 09/22/20 for abdominal pain. Discharge diagnosis * Early cholangitis with elevated LFTs likely, possibly gallstone mediated - rapid clinical resolution noted following possible spontaneous stone expulsion. * Early sepsis management per guidelines. White count normalized. Antibiotics discontinued. * Elevated LFTs downtrending bilirubin/LFTs within 12 hours. Discharge home with advised to follow-up with PCP * Anxiety disorder stable on home dose Cymbalta/alprazolam * Pain management stable on morphine/home dose methadone * History of HIV, managed by Dr. Mana Jain. Continue scheduled outpatient follow-up * Neuropathy continue Lyrica Brief hospital course Ms. Horner is a 55 year old F with a history of HIV for [address] Saroj Adair at [facility] who was in her baseline state of health until she started experiencing worsening abdominal pain along with nausea vomiting started approximately 72 hours ago. The symptoms have progressed to the point patient is unable to take anything by mouth and with frequent exacerb ation of symptoms with attempts at oral intake. She noticed her urine getting darker along with yellowish discoloration of skin. With increasing concerns she presents to the ER. She denies associated fever, flank pain, diarrhea, dysuria, headache myalgia, joint swelling or rash. She denies exposure to sick contacts. She denies taking [id number] herbal supplements. Initial work-up in the ER was consistent with elevated LFTs/bilirubin. Abnormal CT was essentially unremarkable for acute process. Hospital service was consulted in light of elevated LFTs/jaundice and further evaluation. White count 11,000. Patient was started on antibiotics after cultures were drawn. At the time of my evaluation patient is alert and oriented. She was able to answer most the questions. She continues to feel nauseous. Endorses to abdominal pain 6 out of 10. Denies hematemesis or bloody stool. 09/22-patient doing a lot better. LFTs downtrending. Fever defervesced. Abdominal pain resolved. Feels at baseline. Tolerating diet. Nausea resolved. Requesting discharge. Negative cultures so far. White count normalized. Recommend follow-up with primary care physician/Dr. Adair for management of HIV/pre-existing medical issues. Date of admission: 09/22/20 00:01 Discharge date: 09/22/20 Primary care physician: Bin Oliver Discharge Meds Discharge Medications Home Medications abacavir 600 mg-dolutegravir 50 mg-lamivudine 300 mg tablet 1 tab PO QAM 09/21/20 [History Confirmed 09/22/20 Last Taken 09/18/20 08:00] alprazolam 0.5 mg tablet 0.5 mg PO TID PRN 09/21/20 [History Confirmed 09/22/20 Last Taken 09/19/20 08:00] calcium carbonate 600 mg calcium (1,500 mg) tablet 600 mg PO QDAY 09/21/20 [History Confirmed 09/22/20 Last Taken 09/18/20 08:00] cholecalciferol (vitamin D3) 1,250 mcg (50,000 unit) capsule 1,250 mcg PO QWEEK 09/21/20 [History Confirmed 09/22/20 Last Taken Unknown] duloxetine 60 mg capsule,delayed release sprinkle 60 mg PO QDAY 09/21/20 [His tory Confirmed 09/22/20 Last Taken 09/18/20 08:00] famotidine 20 mg tablet 20 mg PO BID 09/21/20 [History Confirmed 09/22/20 Last Taken 09/19/20 08:00] folic acid 1 mg tablet 1 mg PO QDAY 09/21/20 [History Confirmed 09/22/20 Last Taken 09/18/20 08:00] lubiprostone 8 mcg capsule 8 mcg PO QDAY 09/21/20 [History Confirmed 09/22/20 Last Taken 09/19/20 08:00] meloxicam 15 mg tablet 15 mg PO QDAY 09/21/20 [History Confirmed 09/22/20 Last Taken 09/19/20 08:00] methadone 5 mg tablet 10 mg PO QHS 09/21/20 [History Confirmed 09/22/20 Last Taken 09/18/20 21:00] methylphenidate HCl 15 mg capsule,extended release (40-60) sprinkle 15 mg PO QDAY 09/21/20 [History Confirmed 09/22/20 Last Taken 09/19/20 08:00] pregabalin 150 mg capsule 150 mg PO QHS 09/21/20 [History Confirmed 09/22/20 Last Taken 09/18/20 21:00] promethazine 6.25 mg/5 mL oral syrup 12.5 mg PO Q6H PRN 09/21/20 [History Confirmed 09/22/20 Last Taken 09/19/20 08:00] hydrocodone-acetaminophen 1 tab PO Q4H PRN 09/22/20 [History Confirmed 09/22/20 Last Taken 09/19/20 08:00] COURSE Hospital Course Hospital course: . Discharge diagnosis: Cholangitis Time Spent with Patient Time attestation: Total time spent providing and/or coordinating discharge services: EXAM Constitutional Vitals: Temp Pulse Resp BP Pulse Ox 99.5 F H 49 L 19 165/84 99 09/22/20 08:01 09/22/20 12:08 09/22/20 12:08 09/22/20 12:01 09/22/20 12:08 Discharge Data Data Completed and Pending Labs on day of discharge: Labs from last 24 hours 09/22/20 09/22/20 09/21/20 05:10 05:10 15:08 WBC 6.7 RBC 3.75 L Hgb 12.7 Hct 38.4 MCV 102.4 H MCH 33.9 MCHC 33.1 RDW 12.6 Plt Count 73 L MPV 12.3 H Neut % (Auto) 76.6 Lymph % (Auto) 15.8 [place] % (Auto) 6.2 Eos % (Auto) 1.1 Baso % (Auto) 0.3 Lymph # (Auto) 1.05 L [place] # (Auto) 0.41 Eos # (Auto) 0.07 Baso # (Auto) 0.02 Absolute Neutrophils 5.11 VBG Lactic Acid Sodium 137 Potassium 3.9 Chloride 104 Carbon Dioxide 19 L Anion Gap 14.0 BUN 8 Creatinine 0.8 POC Creatinine GFR Calculation 83 Glucose 76 Uric Acid 2.2 L Calcium 7.8 L Phosphorus 1.9 L Magnesium 1.6 Total Bilirubin 3.8 H Direct Bilirubin 3.3 H GGT 231 H AST 266 H ALT 415 H Alkaline Phosphatase 153 H Lactate Dehydrogenase 355 H Total Protein 5.9 Albumin 3.3 Globulin 2.6 Albumin/Globulin Ratio 1.3 Triglycerides 180 H Procalcitonin 0.72 H Urine Color Urine Appearance Urine pH Ur Specific [place] Urine Protein Urine Glucose (UA) Urine Ketones Urine Occult Blood Urine Nitrate Urine Bilirubin Urine Urobilinogen Ur Leukocyte Esterase Urine RBC Urine WBC Ur Squamous Epith Cells Urine Bacteria Ur Culture Indicated? SARS-CoV-2 (PCR) 09/21/20 09/21/20 09/21/20 15:08 13:24 13:01 WBC RBC Hgb Hct MCV MCH MCHC RDW Plt Count MPV Neut % (Auto) Lymph % (Auto) [place] % (Auto) Eos % (Auto) Baso % (Auto) Lymph # (Auto) [place] # (Auto) Eos # (Auto) Baso # (Auto) Absolute Neutrophils VBG Lactic Acid Sodium 135 Potassium 4.0 Chloride 99 Carbon Dioxide 22 Anion Gap 14.0 BUN 14 Creatinine 0.9 POC Creatinine GFR Calculation 72 Glucose 98 Uric Acid Calcium 8.4 L Phosphorus Magnesium Total Bilirubin 4.8 H Direct Bilirubin GGT AST 647 H ALT 664 H Alkaline Phosphatase 188 H Lactate Dehydrogenase Total Protein 6.5 Albumin 4.0 Globulin 2.5 Albumin/Globulin Ratio 1.6 Triglycerides Procalcitonin TNP Urine Color Urine Appearance Urine pH Ur Specific [place] Urine Protein Urine Glucose (UA) Urine Ketones Urine Occult Blood Urine Nitrate Urine Bilirubin Urine Urobilinogen Ur Leukocyte Esterase Urine RBC Urine WBC Ur Squamous Epith Cells Urine Bacteria Ur Culture Indicated? SARS-CoV-2 (PCR) Pending 09/21/20 09/21/20 09/21/20 13:01 13:01 13:01 WBC 11.7 H RBC 4.26 Hgb 14.5 Hct 42.4 MCV 99.5 MCH 34.0 MCHC 34.2 RDW 12.4 Plt Count 109 L MPV 13.3 H Neut % (Auto) 89.0 H Lymph % (Auto) 7.0 L [place] % (Auto) 3.8 Eos % (Auto) 0.1 Baso % (Auto) 0.1 Lymph # (Auto) 0.82 L [place] # (Auto) 0.44 Eos # (Auto) 0.01 Baso # (Auto) 0.01 Absolute Neutrophils 10.45 H VBG Lactic Acid 0.9 Sodium TNP Potassium TNP Chloride TNP Carbon Dioxide TNP Anion Gap TNP BUN TNP Creatinine TNP POC Creatinine 0.9 GFR Calculation TNP Glucose TNP Uric Acid Calcium TNP Phosphorus Magnesium Total Bilirubin TNP Direct Bilirubin GGT AST TNP ALT TNP Alkaline Phosphatase TNP Lactate Dehydrogenase Total Protein TNP Albumin TNP Globulin TNP Albumin/Globulin Ratio TNP Triglycerides Procalcitonin Urine Color Urine Appearance Urine pH Ur Specific [place] Urine Protein Urine Glucose (UA) Urine Ketones Urine Occult Blood Urine Nitrate Urine Bilirubin Urine Urobilinogen Ur Leukocyte Esterase Urine RBC Urine WBC Ur Squamous Epith Cells Urine Bacteria Ur Culture Indicated? SARS-CoV-2 (PCR) 09/21/20 13:00 WBC RBC Hgb Hct MCV MCH MCHC RDW Plt Count MPV Neut % (Auto) Lymph % (Auto) [place] % (Auto) Eos % (Auto) Baso % (Auto) Lymph # (Auto) [place] # (Auto) Eos # (Auto) Baso # (Auto) Absolute Neutrophils VBG Lactic Acid Sodium Potassium Chloride Carbon Dioxide Anion Gap BUN Creatinine POC Creatinine GFR Calculation Glucose Uric Acid Calcium Phosphorus Magnesium Total Bilirubin Direct Bilirubin GGT AST ALT Alkaline Phosphatase Lactate Dehydrogenase Total Protein Albumin Globulin Albumin/Globulin Ratio Triglycerides Procalcitonin Urine Color Moon Urine Appearance Clear Urine pH 6.0 Ur Specific [place] 1.017 Urine Protein 30 A Urine Glucose (UA) Negative Urine Ketones Negative Urine Occult Blood 0.03 Urine Nitrate Negative Urine Bilirubin 4.0 A Urine Urobilinogen 4.0 A Ur Leukocyte Esterase Negative Urine RBC 1 Urine WBC 0 Ur Squamous Epith Cells 13 H Urine Bacteria None Ur Culture Indicated? No SARS-CoV-2 (PCR) Preliminary micro results at discharge 09/21/20 19:25 Blood Culture - Preliminary Blood Gram negative bacillus 09/21/20 13:00 Urine Culture - Preliminary Urine - Clean Void Mid-Stream Discharge Plan Patient/Caregiver Discharge Instructions Activity: increase activity as tolerated Diet: Regular Diet Prescriptions: Continued methylphenidate HCl 15 mg cap,ER sprinkle,biphasic 40-60 15 mg PO QDAY RF: 0 pregabalin 150 mg capsule 150 mg PO QHS RF: 0 methadone 5 mg tablet 10 mg PO QHS RF: 0 alprazolam 0.5 mg tablet 0.5 mg PO TID PRN (Reason: Anxiety) RF: 0 meloxicam 15 mg tablet 15 mg PO QDAY RF: 0 Amitiza 8 mcg capsule 8 mcg PO QDAY RF: 0 cholecalciferol (vitamin D3) 1,250 mcg (50,000 unit) capsule 1,250 mcg PO QWEEK RF: 0 Triumeq 600-50-300 mg tablet 1 tab PO QAM RF: 0 duloxetine 60 mg capsule, delayed rel sprinkle 60 mg PO QDAY RF: 0 folic acid 1 mg tablet 1 mg PO QDAY RF: 0 famotidine 20 mg tablet 20 mg PO BID RF: 0 calcium carbonate [Calcium 600] 600 mg calcium (1,500 mg) tablet 600 mg PO QDAY RF: 0 promethazine 6.25 mg/5 mL syrup 12.5 mg PO Q6H PRN (Reason: Nausea) RF: 0 hydrocodone-acetaminophen 5-325 mg Tablet 1 tab PO Q4H PRN (Reason: Pain) RF: 0 Follow Up Plan Follow up with: Bin Oliver MD [Primary Care Provider] - Patient Disposition: Home, Self-Care Prognosis: Fair Rehab Potential: Fair I certify that the patient requires SNF services: No Overall status at discharge: patient is progressing back to baseline Discharge Orders: Discharge Order (Routine); Ordered 09/22/20 Ordered By: Petar OLSON VTE Deep Vein Thrombosis/Pulmonary Embolism Present on Admission: No
[2020-09-23] MEDS ORDERED: FLU VACC QS2020-21(6MOS UP)/PF 60 MCG/0.5 ML SYRINGE IM ONE (10:00)
[2020-09-28] MEDS ORDERED: CHOLECALCIFEROL 1250 MCG PO SCH (09:00)
== END 2020-09-22 14:15 | disposition home or self-care (01) | DRG 975 ==
LOC: ED 12:19 → ICU 09-22 00:01
PROVIDERS: ADMIT Internal Medicine; ATTEND Internal Medicine